=== PATIENT | male | born 2000 | race Caucasian/White ===

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

== ENCOUNTER 2021-08-08 16:39 | Emergency (ER) | payer OTHER ==
[~2021-08-08] VITALS: Ht 182.9 cm; Wt 90.7 kg
--- NOTE | 2021-08-08 16:50 | NUR ---
BIB [facility] and [employer] for drug induced "panic and fast heart rate". He is awake, alert, oriented x4. Placed on a monitor. 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
--- NOTE | 2021-08-08 18:43 | NUR ---
Patient is asleep, vital signs stable
--- NOTE | 2021-08-08 19:07 | NUR ---
Patient states his sister was going to pick him up but the sister refused "because I do drugs and she wants me to go to rehab". He states he will wait in the waiting room and make a decision of where to go. He states he lives in [place] with his parents and sister He is ambulatory with steady gait
[2021-08-08 19:10] VITALS: BP 122/71
--- NOTE | 2021-08-08 19:36 | NUR ---
Patient discharged to home in stable condition. Written and verbal after care instructions given. Patient verbalizes understanding of instructions. Stressed follow up or return to ER for worsening s/s.
== END 2021-08-08 19:37 | disposition home or self-care (01) ==
LOC: ER 16:41
DX: T40.1X1A Poisoning by heroin, accidental (unintentional), initial encounter (principal); T40.411A Poisoning by fentanyl or fentanyl analogs, accidental (unintentional), initial encounter; R00.2 Palpitations; R40.4 Transient alteration of awareness; F11.20 Opioid dependence, uncomplicated; Y92.410 Unspecified street and highway as the place of occurrence of the external cause; Z87.820 Personal history of traumatic brain injury; Z86.69 Personal history of other diseases of the nervous system and sense organs
CPT/HCPCS: 93005; A4663